=== PATIENT | female | born 1970 | race Caucasian/White ===

== ENCOUNTER 2019-03-19 12:56 | Observation (INO) | payer BC ==
[~2019-03-19] VITALS: Ht 154.9 cm; Wt 69.4 kg
--- NOTE | 2019-03-19 13:34 | PHYS DOC ---
Past History Past Medical History: Migraines Additional Smoking Information: 1 PPD FOR 20+ YEARS Alcohol Use: None Adult General Chief Complaint Chief Complaint: BACK PAIN OR INJURY [facility] HPI Patient is a 48 year old female who presents with complaint of low back pain. Patient states that she injured her back shortly prior to arrival. She states after getting out of the shower she was trying to put on her jeans when she stumbled slightly, causing a sudden spasm in her low back. Patient states that she is having sharp 10 out of 10 pain in her low back which caused her to fall to the ground. States that the pain resides in her low back. Denies any hip pain or pain radiating down into her lower extremities. No previous history of similar symptoms but has had history of muscle strain in the past. Has not taking medications for symptoms. Due to severity of pain, EMS was called and brought patient to the emergency department for further treatment. Patient was administered a total of 5 mg of Versed by EMS prior to arrival. She states that this has not helped with her pain. Denies saddle anesthesia, loss of bowel or bladder control, or foot drop. Review of Systems Review of Systems Constitutional: Denies fever or chills [] Eyes: Denies change in visual acuity, redness, or eye pain [] HENT: Denies nasal congestion or sore throat [] Respiratory: Denies cough or shortness of breath [] Cardiovascular: No additional information not addressed in HPI [] GI: Denies abdominal pain, nausea, vomiting, bloody stools or diarrhea [] : Denies dysuria or hematuria [] Musculoskeletal: Denies back pain or joint pain [] Integument: Denies rash or skin lesions [] Neurologic: Denies headache, focal weakness or sensory changes [] Endocrine: Denies polyuria or polydipsia [] All other systems were reviewed and found to be within normal limits, except as documented in this note. Allergies Allergies Allergies Coded Allergies Type Severity Reaction Last Updated Verified No Known Drug Allergies 03/19/19 No Physical Exam Physical Exam Constitutional: Alert, afebrile, appears in moderate to severe discomfort. [] HENT: Normocephalic, atraumatic, bilateral external ears normal, oropharynx moist, no oral exudates, nose normal. [] Eyes: PERRLA, EOMI, conjunctiva normal, no discharge. [] Neck: Normal range of motion, no tenderness, supple, no stridor. [] Cardiovascular:Heart rate regular rhythm, no murmur [] Lungs & Thorax: Bilateral breath sounds clear to auscultation [] Abdomen: Bowel sounds normal, soft, no tenderness, no masses, no pulsatile masses. [] Skin: Warm, dry, no erythema, no rash. [] Back: Midline and bilateral lower lumbar paraspinous muscle tenderness to palpation, no CVA tenderness. [] Extremities: No tenderness, no cyanosis, no clubbing, ROM intact, no edema. [] Neurologic: Alert and oriented X 3, normal motor function, normal sensory function, no focal deficits noted. [] Current Patient Data Vital Signs Vital Signs Date Time Temp Pulse Resp B/P (MAP) Pulse Ox O2 Delivery O2 Flow Rate FiO2 03/19/19 13:00 98.3 88 12 94 Room Air EKG EKG Not performed[] Radiology/Procedures Radiology/Procedures [address] [address] IMAGING REPORT Signed PATIENT: BOB PAIZ ACCOUNT: [id number] : 1970 LOCATION: ER AGE: 48 SEX: F EXAM STATUS: REG ER ORD. PHYSICIAN: ENRIQUE JACKSON MD REASON: EXTREME LOW BACK PAIN, BENT OVER HEARD POP PROCEDURE: LUMBAR SPINE MIN 4V EXAM: AP, lateral and lumbosacral spot views with bilateral oblique views of the lumbar spine DATE: 03/19/2019 1:30 PM INDICATION: Low back pain COMPARISON: No Prior FINDINGS: There are 5 nonrib-bearing lumbar-type vertebral bodies. Vertebral body heights are preserved. Intervertebral disc heights are preserved. On the oblique views, no definite pars defects are seen. Minimal L5-S1 facet degenerative change. Mild straightening of the normal lumbar lordosis. No spondylolisthesis. IMPRESSION: No evidence for acute fracture or subluxation. If there is persistent clinical concern for lumbar spine fracture, CT or MRI may provide additional details. Electronically signed by: Mykel Rodgers MD (03/19/2019 2:02 PM) [id number] DICTATED AND SIGNED BY: MYKEL RODGERS MD DATE: 03/19/19 9870 CC: ENRIQUE JACKSON MD; PCP,NO ~ [] Course & Med Decision Making Course & Med Decision Making Pertinent Labs and Imaging studies reviewed. (See chart for details) The patient was treated with IV Toradol with no relief in symptoms. X-ray imaging shows no significant abnormalities in the lumbar spine. Patient treated with 2 rounds of IV morphine. After treatment, the patient continues to complain of pain in the low back that is slightly better. She states however she is unable to ambulate under her own power secondary to pain. Due to intractable back pain, the patient will be admitted for further evaluation. Due to lack of radiculopathy symptoms or any focal neurologic deficits, I have low suspicion for nerve impingement and believe that the patient's pathology is restricted to the lower lumbar back muscles. I spoke with Dr. Gutierrez who accepted care of patient in hospital.[] Dragon Disclaimer Dragon Disclaimer This electronic medical record was generated, in whole or in part, using a voice recognition dictation system. Departure Departure: Impression: Primary Impression: Intractable low back pain Disposition: ADMITTED INPATIENT Admitting Physician: Denise Gutierrez Condition: STABLE Referrals: PCP,RENEE (PCP) ENRIQUE JACKSON MD March 19, 2019 13:34
[2019-03-19] MEDS ORDERED: KETOROLAC 30 MG/ML VIAL. IV ONE (13:45)
--- NOTE | 2019-03-19 14:05 | RAD ---
EXAM: AP, lateral and lumbosacral spot views with bilateral oblique views of the lumbar spine DATE: 03/19/2019 1:30 PM INDICATION: Low back pain COMPARISON: No Prior FINDINGS: There are 5 nonrib-bearing lumbar-type vertebral bodies. Vertebral body heights are preserved. Intervertebral disc heights are preserved. On the oblique views, no definite pars defects are seen. Minimal L5-S1 facet degenerative change. Mild straightening of the normal lumbar lordosis. No spondylolisthesis. IMPRESSION: No evidence for acute fracture or subluxation. If there is persistent clinical concern for lumbar spine fracture, CT or MRI may provide additional details. Electronically signed by: Mykel Bourgeois MD (03/19/2019 2:02 PM) [id number]
[2019-03-19] MEDS ORDERED: ONDANSETRON PF 4 MG/2 ML VIAL. IV ONE (15:00)
[2019-03-19] MEDS ORDERED: MORPHINE SULFATE 4 MG/ML DISP.SYRIN. IV ONE ×2 (15:00→16:45)
[2019-03-19] MEDS ORDERED: ONDANSETRON PF 4 MG/2 ML VIAL. IV PRN (18:15)
[2019-03-19] MEDS ORDERED: ASPI-621 PO (18:30)
[2019-03-19] MEDS: IBUPROFEN 600 MG TABLET. PO SCH (18:33)
[2019-03-19] MEDS: LIDOCAINE (700MG/PATCH) PATCH. TD SCH (18:33)
[2019-03-19] MEDS: MORPHINE SULFATE 4 MG/ML DISP.SYRIN. IV PRN (18:34)
[2019-03-19 18:57] VITALS: BP 123/85
[2019-03-19] MEDS ORDERED: PATCH REMOVAL. MC SCH (21:00)
[2019-03-19 22:54] VITALS: BP 102/68
[2019-03-20] MEDS: MORPHINE SULFATE 4 MG/ML DISP.SYRIN. IV PRN ×3 (01:24→16:11)
[2019-03-20 04:59] VITALS: BP 111/66
[2019-03-20] MEDS: LIDOCAINE (700MG/PATCH) PATCH. TD SCH (08:35)
[2019-03-20] MEDS: IBUPROFEN 600 MG TABLET. PO SCH (08:35)
[2019-03-20] MEDS ORDERED: CYCLOBENZAPRINE 10 MG TABLET. PO SCH (09:00)
[2019-03-20] MEDS: CYCLOBENZAPRINE 10 MG TABLET. PO SCH ×2 (09:23→15:21)
[2019-03-20 10:36] VITALS: BP 110/73
[2019-03-20] MEDS ORDERED: IBUPROFEN 600 MG TABLET. PO SCH (14:00)
[2019-03-20 14:24] VITALS: BP 112/71
--- NOTE | 2019-03-20 14:56 | SSS ---
ADMIT DATE: 03/19/2019 HISTORY OF PRESENT ILLNESS: The patient is a 48-year-old female patient who presented to the Emergency Room with a complaint of severe low back pain. She injured her back shortly prior to arrival. She states after getting out of the shower, she was trying to put on her jeans when she stumbled slightly and causing a sudden spasm in her lower back. She states she is having sharp, 10/10 pain in her lower back, which caused her to fall to the ground. The pain is limited to her lower back on both sides. Denied any hip pain or pain radiating down into her lower extremities. Denied any bowel or bladder problems. She has never had any previous history of similar symptoms, has had history of muscle strains in the past. She has not taken any medication for symptoms of severity of pain. The Emergency Medical Service personnel was called and brought the patient to the Emergency Room for further treatment. She was given a total of 5 mg of Versed by EMS prior to arrival. She did say that did not help her pain. Denies any saddle anesthesia or loss of bowel or bladder control or footdrop. She was extensively investigated and has had x-ray of her lumbar spine, which showed that there are not weightbearing lumbar type vertebral bodies. Vertebral body heights are preserved, intervertebral disk heights are preserved. On the oblique views, no definite pars defects are seen. Minimal L5-S1 facet degenerative changes, mild straightening of the normal lumbar lordosis. No spondylolisthesis and the x-ray showed no evidence of acute fracture or subluxation, and the radiologist recommended that if the pain persists, CT or MRI may provide additional details. The patient was admitted and has been treated with morphine, ibuprofen, and Flexeril as well as Lidoderm patch without really much relief. She continued to complain of severe pain that is localized to her lower back. She is unable to get up to the bathroom and therefore, a decision was made to transfer her to [facility] to arrange for an MRI of her lumbar spine and to consult the neurosurgical team if any surgical intervention is warranted. PAST MEDICAL HISTORY: Unremarkable except for migraine headache. PAST SURGICAL HISTORY: Unremarkable. ALLERGIES: She has no known drug allergies. MEDICATIONS: She is normally on Excedrin Extra Strength for her migraine headache. FAMILY HISTORY: Unremarkable. SOCIAL HISTORY: She is . She does smoke a pack a day for the last 20 years. Does not drink alcohol. PHYSICAL EXAMINATION: GENERAL: On examining her, she was resting slightly propped up in bed, in no apparent respiratory distress. No pallor, jaundice, cyanosis, or thyromegaly. No jugular venous distension. No lower limb edema. VITAL SIGNS: Her heart rate was 83, blood pressure 110/73, temperature was 98, respiratory rate was 20, and oxygen saturation was 92% on room air. HEENT: Showed normocephalic, atraumatic. NECK: Supple. HEART: Showed normal first and second heart sounds. No gallop, rub or murmur. CHEST: Clear to auscultation. No crepitation or rhonchi. ABDOMEN: Distended, soft, nontender. No guarding or rigidity. No organomegaly. All hernial orifices intact. Bowel sounds normal. NEUROLOGIC: She is awake, alert, responding appropriately. All her cranial nerves are intact. EXTREMITIES: She moves extremities without difficulty; however, she has continued to have severe low back pain. ASSESSMENT AND PLAN: Given that despite treatment with pain medication and muscle relaxant and nonsteroidals, the patient continued to have severe pain. I decided to transfer her to [facility] to arrange for an MRI and to consult the neurosurgical team if deemed necessary. FINAL DISCHARGE DIAGNOSES: Intractable low back pain and migraine headache. ROSIBEL CANALES MD DR: OLEG/ria JOB#: [id number] / [id number]
== END 2019-03-20 16:15 | disposition short-term general hospital (02) ==
LOC: ER 12:56 → 1 SOUTH 16:24 → INTOOBSV 16:24 → ER 17:50
PROVIDERS: ADMIT Internal Medicine; ATTEND Internal Medicine
DX: M54.5 Low back pain (principal); G43.909 Migraine, unspecified, not intractable, without status migrainosus; F17.210 Nicotine dependence, cigarettes, uncomplicated
CPT/HCPCS: 72110; 96374; 96375; 96376; 99284; G0378; J1885; J2270; J2405; G0379; 99285-25

== ENCOUNTER → 2021-02-07 | Outpatient (CLI) | payer BC ==
[~2021-02-07] MED LIST: ASPI-621 PO
--- NOTE | 2021-02-09 20:01 | RAD ---
DATE: 02/07/2021 EXAM: MAMMO MICHAEL SCREENING BILATERAL HISTORY: Screening COMPARISON: Baseline exam This study was interpreted with the benefit of Computerized Aided Detection (CAD). Breast Density: HETERO The breast parenchyma is heterogenously dense, which could reduce sensitivity of mammography. Breast parenchyma level C. FINDINGS: No suspicious mass, calcifications, or architectural distortion. IMPRESSION: No evidence of malignancy. BI-RADS CATEGORY: 1 NEGATIVE RECOMMENDED FOLLOW-UP: 12M 12 MONTH FOLLOW-UP PQRS compliance statement: Patient information was entered into a reminder system with a target due date for the next mammogram. Mammography is a sensitive method for finding small breast cancers, but it does not detect them all and is not a substitute for careful clinical examination. A negative mammogram does not negate a clinically suspicious finding and should not result in delay in biopsying a clinically suspicious abnormality. "Our facility is accredited by the [employer] Mammography Program."
== END ==
LOC: MAMMO 10:22
PROVIDERS: ATTEND Family Medicine
DX: Z12.31 Encounter for screening mammogram for malignant neoplasm of breast (principal)
CPT/HCPCS: 77063; 77067